=== PATIENT | male | born 1960 | race Two or more races ===

== ENCOUNTER 2018-07-30 09:53 | Emergency (ER) | payer MEDICAID ==
[~2018-07-30] VITALS: Ht 167.6 cm; Wt 72.1 kg
--- NOTE | 2018-07-30 10:13 | Emergency Room Report ---
History of Present Illness General Chief Complaint: General Complaint Source: Patient, EMS, PMD Present Illness HPI 58-year-old male with h/o bipolar disorder, copd, generalized muscle weakness sent from the correction for rectal prolapse, patient reports severe pain, and Dr. Kevin Dotson sent for evaluation. Patient reports significant pain, no bleeding, and no other complaints. It is unclear exactly how long this been going on for. Allergies: Coded Allergies: No Known Allergies (Unverified , 07/30/18) Patient History Limited by: language barrier Past Medical History: see triage record Reviewed Nursing Documentation: PMH: Agreed; PSxH: Agreed Nursing Documentation-PMH Past Medical History: No History, Except For Hx COPD: Yes History Of Psychiatric Problem: Yes - bipolar, substance abuse Hx Neurological Problems: Yes - muscular weakness Review of Systems All Other Systems: limited - language barrier Physical Exam Vital Signs Date Time Temp Pulse Resp B/P (MAP) Pulse Ox O2 Delivery O2 Flow Rate FiO2 07/30/18 09:54 97.7 69 16 97 Room Air Sp02 EP Interpretation: reviewed, normal General Appearance: no apparent distress, alert, non-toxic Head: normocephalic Eyes: bilateral eye normal inspection, bilateral eye PERRL, bilateral eye EOMI ENT: normal ENT inspection, hearing grossly normal, normal pharynx, no angioedema, normal voice, moist mucus membranes Neck: normal inspection, full range of motion, supple, supple/symm/no masses Respiratory: chest non-tender, lungs clear, normal breath sounds, chest symmetrical, palpation of chest normal Cardiovascular #1: normal peripheral pulses, regular rate, rhythm Cardiovascular #2: 2+ radial (R), 2+ radial (L) Gastrointestinal: normal inspection, non tender, soft, no mass, no guarding, no rebound Rectal: mass - large pear-sized rectal prolapse, no bleeding, but + tender Genitourinary: normal inspection, no CVA tenderness Musculoskeletal: back normal, gait/station normal, normal range of motion, non- tender, no calf tenderness Neurologic: alert, responsive, facilities painter III-XII nml as tested, sensory intact, speech normal Psychiatric: mood/affect normal Skin: normal color, normal turgor Lymphatic: no adenopathy Medical Decision Making Diagnostic Impression: Primary Impression: Rectal prolapse ER Course Patient with very large rectal prolapse, tenderness to the mucosa, did attempt placing sugar on it, and gave patient IV analgesics, will admit surgical consultation to [facility], Dr. Kevin Dotosn. Last Vital Signs Date Time Temp Pulse Resp B/P (MAP) Pulse Ox O2 Delivery O2 Flow Rate FiO2 07/30/18 09:54 97.7 69 16 97 Room Air Disposition: ADMITTED INPATIENT Condition: Stable Signed Out To: BAY Zamora M.D July 30, 2018 10:13
[2018-07-30] MEDS ORDERED: NS 250 ML IVPB ONE (10:15)
[2018-07-30] MEDS ORDERED: Morphine Sulfate 2mg/ml Inj(IV/IM USE ONLY) IVP ONE (10:15)
[2018-07-30] MEDS ORDERED: ZYPREXA10 MG ORAL (10:28)
[2018-07-30] MEDS ORDERED: DOCUSATE SODIU100 MG ORAL (10:28)
[2018-07-30] MEDS ORDERED: MILK OF MA400 MG/51 ORAL (10:28)
[2018-07-30] MEDS ORDERED: MULTIVITAMINS1 EA13 ORAL (10:28)
[2018-07-30] MEDS ORDERED: PRO-STAT LIQUID30 ML ORAL (10:28)
[2018-07-30] MEDS ORDERED: IBUPROFEN600 MG ORAL (10:28)
[2018-07-30 10:29] VITALS: BP 116/79
--- NOTE | 2018-07-30 10:33 | NUR ---
ED Nurse Note:pt. was BIBA from SNF with large rectal prolapse, no bleeding noted, pt. is A/Ox4 ambulatory, VSS, blood was sent to labs ,pain meds and IV fluids given, swabs are done
[2018-07-30 10:37] LABS: ANION GAP 7 mmol/L (5-15); BLOOD UREA NITROGEN 18 mg/dL (7-18); CALCIUM 9.5 MG/DL (8.5-10.1); CARBON DIOXIDE 29 MMOL/L (21-32); CHLORIDE 104 MMOL/L (98-107); CREATININE 0.8 MG/DL (0.55-1.30); POTASSIUM 4.1 MMOL/L (3.5-5.1); SODIUM 140 MMOL/L (136-145)
[2018-07-30 10:42] LABS: ALANINE AMINOTRANSFERASE 20 U/L (12-78); ALBUMIN 3.8 G/DL (3.4-5.0); ALBUMIN/GLOBULIN RATIO 1.1 (1.0-2.7); ALKALINE PHOSPHATASE 93 U/L (46-116); ASPARTATE AMINO TRANSFERASE 22 U/L (15-37); BILIRUBIN,TOTAL 0.3 MG/DL (0.2-1.0); INR 1.1 (0.9-1.1)
[2018-07-30 10:46] LABS: EOSINOPHILS % (AUTO) 4.1 % (0.0-3.0); HEMATOCRIT 40.9 % (42.0-52.0); HEMOGLOBIN 14.4 G/DL (14.2-18.0); LYMPHOCYTES % (AUTO) 25.9 % (20.0-45.0); MEAN CORPUSCULAR VOLUME 84 FL (80-99); MONOCYTES % (AUTO) 6.8 % (1.0-10.0); NEUTROPHILS % (AUTO) 62.2 % (45.0-75.0); PLATELET COUNT 256 K/UL (150-450); RED BLOOD COUNT 4.86 M/UL (4.70-6.10); RED CELL DISTRIBUTION WIDTH 14.5 % (11.6-14.8); WHITE BLOOD COUNT 9.2 K/UL (4.8-10.8)
[2018-07-30 13:25] VITALS: BP 119/78
--- NOTE | 2018-07-30 13:26 | NUR ---
ED Nurse Note:called reportv to [facility] -to nurse Siva
--- NOTE | 2018-07-30 14:01 | NUR ---
ED Nurse Note: report given to [facility]
[2018-07-30 14:08] VITALS: BP 122/68
--- NOTE | 2018-07-30 14:10 | NUR ---
ER DISCHARGE NOTE: Patient is cleared to be discharged per ERMD, pt is aox4, on room air, with stable vital signs. pt is able to ambulate with steady gait. pt took all belongings. ELISHA SAEED GAVE REPORT TO Naomi FROM [facility]
== END 2018-07-30 14:08 | disposition short-term general hospital (02) ==
LOC: EDBD 09:53 → EMR 10:24 → EDBEDREQ 11:14 → EMR 14:08
DX: K62.3 Rectal prolapse (principal); J44.9 Chronic obstructive pulmonary disease, unspecified; R53.1 Weakness
CPT/HCPCS: 36415; 80053; 85025; 85610; 85730; 87081; 96374; 96375; 99285; J2270; J2405; J7050

== ENCOUNTER 2018-09-04 19:21 | Emergency (ER) | payer MEDICAID ==
[~2018-09-04] VITALS: Ht 167.6 cm; Wt 65.3 kg
[~2018-09-04 19:21] MED LIST: ACETAMINOPHEN120 MG ORAL; DOCUSATE SODIU100 MG ORAL; IBUPROFEN600 MG ORAL; MILK OF MA400 MG/51 ORAL; MULTIVITAMINS1 EA13 ORAL; MULTIVITAMINS1 EAC8 ORAL; OMEPRAZOLE40 M1 ORAL; PRO-STAT LIQUID30 ML ORAL; SENNA8.6 M2 PO; ZYPREXA10 MG ORAL
[2018-09-04 19:22] VITALS: BP 111/85
--- NOTE | 2018-09-04 19:22 | NUR ---
ED Nurse Note: Patient EJ yeung Covalescent, with complaints of rectal prolapse. A&Ox2, GCS 14.
--- NOTE | 2018-09-04 19:48 | Emergency Room Report ---
History of Present Illness General Chief Complaint: Gastrointestinal Illness Source: Patient, Medical Record, EMS Present Illness HPI Patient presented from nursing facility with reports of rectal prolapse On further discussion with the nursing facility patient has had prolapse symptoms presentation to the facility However today after being seen by the health care provider was sent to the emergency room patient himself has schizophrenia Is not an appropriate historian Does report that he has some discomfort in that area denies any chest pain denies any vomiting Allergies: Coded Allergies: No Known Allergies (Unverified , 07/30/18) Patient History Past Medical History: see triage record Pertinent Family History: none Reviewed Nursing Documentation: PMH: Agreed; PSxH: Agreed Nursing Documentation-PMH Past Medical History: No History, Except For Hx COPD: Yes Hx Gastrointestinal Problems: Yes - GERD History Of Psychiatric Problem: Yes - bipolar Hx Neurological Problems: Yes - muscular weakness Review of Systems All Other Systems: negative except mentioned in HPI Physical Exam Vital Signs Date Time Temp Pulse Resp B/P (MAP) Pulse Ox O2 Delivery O2 Flow Rate FiO2 09/04/18 19:10 98.1 85 19 111/85 (94) 94 Room Air Sp02 EP Interpretation: reviewed, normal General Appearance: no apparent distress Head: normocephalic, atraumatic Eyes: bilateral eye PERRL, bilateral eye EOMI ENT: hearing grossly normal, normal pharynx, TMs + canals normal, uvula midline Neck: full range of motion, supple, no meningismus, no bony tend Respiratory: lungs clear, normal breath sounds, no rhonchi, no respiratory distress, no retraction, no accessory muscle use Cardiovascular #1: normal peripheral pulses, regular rate, rhythm, no edema, no gallop, no JVD, no murmur Gastrointestinal: normal bowel sounds, non tender, soft, no mass, no organomegaly, non-distended, no guarding, no hernia, no pulsatile mass, no rebound Rectal: other - Large rectal prolapse Genitourinary: no CVA tenderness Musculoskeletal: normal inspection Neurologic: oriented x3, responsive, accounting analyst III-XII nml as tested, motor strength/ tone normal, sensory intact Psychiatric: mood/affect normal Skin: normal color, no rash, warm/dry, palpation normal Lymphatic: normal inspection, no adenopathy Medical Decision Making Diagnostic Impression: Primary Impression: Rectal prolapse ER Course Given the patient's history and presentation blood work was obtained Request for admission was made I did discuss with the nursing facility patient has had this prolapse for over past 2 months patient also on review of records Had similar presentation recently with transfer to another facility I spoke to [place] [facility] [place] he reports that it with his discussion with general surgery and colorectal that they would like to transfer the patient back to custodial and will arrange close outpatient follow-up Given the chronicity of this presentation patient will be transferred back to nursing facility Labs Test 09/04/18 19:32 White Blood Count 8.9 K/UL (4.8-10.8) Red Blood Count 4.51 M/UL (4.70-6.10) Hemoglobin 13.3 G/DL (14.2-18.0) Hematocrit 37.3 % (42.0-52.0) Mean Corpuscular Volume 83 FL (80-99) Mean Corpuscular Hemoglobin 29.4 PG (27.0-31.0) Mean Corpuscular Hemoglobin Concent 35.6 G/DL (32.0-36.0) Red Cell Distribution Width 13.2 % (11.6-14.8) Platelet Count 272 K/UL (150-450) Mean Platelet Volume 4.7 FL (6.5-10.1) Neutrophils (%) (Auto) 65.3 % (45.0-75.0) Lymphocytes (%) (Auto) 24.9 % (20.0-45.0) Monocytes (%) (Auto) 5.7 % (1.0-10.0) Eosinophils (%) (Auto) 3.0 % (0.0-3.0) Basophils (%) (Auto) 1.0 % (0.0-2.0) Sodium Level 142 MMOL/L (136-145) Potassium Level 3.8 MMOL/L (3.5-5.1) Chloride Level 105 MMOL/L (98-107) Carbon Dioxide Level 29 MMOL/L (21-32) Anion Gap 8 mmol/L (5-15) Blood Urea Nitrogen 14 mg/dL (7-18) Creatinine 1.0 MG/DL (0.55-1.30) Estimat Glomerular Filtration Rate > 60 mL/min (>60) Glucose Level 142 MG/DL (74-106) Calcium Level 9.4 MG/DL (8.5-10.1) Total Bilirubin 0.3 MG/DL (0.2-1.0) Aspartate Amino Transf (AST/SGOT) 19 U/L (15-37) Alanine Aminotransferase (ALT/SGPT) 17 U/L (12-78) Alkaline Phosphatase 95 U/L (46-116) Total Protein 6.9 G/DL (6.4-8.2) Albumin 3.7 G/DL (3.4-5.0) Globulin 3.2 g/dL Albumin/Globulin Ratio 1.2 (1.0-2.7) Last Vital Signs Date Time Temp Pulse Resp B/P (MAP) Pulse Ox O2 Delivery O2 Flow Rate FiO2 09/04/18 19:10 98.1 85 19 111/85 (94) 94 Room Air Status: improved Disposition: XFER SNF Condition: Stable Additional Instructions: Patient is provided with the discharge instructions notified to follow up with primary doctor in the next 2-3 days otherwise return to the er with any worsening symptoms. Please note that this report is being documented using [employer] technology. This can lead to erroneous entry secondary to incorrect interpretation by the dictating instrument. Armando Gasca DO Sep 04, 2018 19:48
[2018-09-04 19:50] LABS: ANION GAP 8 mmol/L (5-15); BLOOD UREA NITROGEN 14 mg/dL (7-18); CALCIUM 9.4 MG/DL (8.5-10.1); CARBON DIOXIDE 29 MMOL/L (21-32); CHLORIDE 105 MMOL/L (98-107); POTASSIUM 3.8 MMOL/L (3.5-5.1); SODIUM 142 MMOL/L (136-145)
--- NOTE | 2018-09-04 19:51 | NUR ---
Spoke with Li at [facility]-aware of patient going back.
[2018-09-04 19:55] LABS: ALANINE AMINOTRANSFERASE 17 U/L (12-78); ALBUMIN 3.7 G/DL (3.4-5.0); ALBUMIN/GLOBULIN RATIO 1.2 (1.0-2.7); ALKALINE PHOSPHATASE 95 U/L (46-116); ASPARTATE AMINO TRANSFERASE 19 U/L (15-37); BILIRUBIN,TOTAL 0.3 MG/DL (0.2-1.0)
--- NOTE | 2018-09-04 20:15 | NUR ---
ED Nurse Note: Patient is complaining of pain and would like to have something to manage it. Patient informed of impending evaluations here at [place].
--- NOTE | 2018-09-04 20:19 | NUR ---
ED Nurse Note: ERMD informed of patients complaints of pain. 4/10 on pain scale.
[2018-09-04 20:42] LABS: HEMATOCRIT 37.3 % (42.0-52.0); HEMOGLOBIN 13.3 G/DL (14.2-18.0); LYMPHOCYTES % (AUTO) 24.9 % (20.0-45.0); MEAN CORPUSCULAR VOLUME 83 FL (80-99); MONOCYTES % (AUTO) 5.7 % (1.0-10.0); NEUTROPHILS % (AUTO) 65.3 % (45.0-75.0); PLATELET COUNT 272 K/UL (150-450); RED BLOOD COUNT 4.51 M/UL (4.70-6.10); RED CELL DISTRIBUTION WIDTH 13.2 % (11.6-14.8); WHITE BLOOD COUNT 8.9 K/UL (4.8-10.8)
--- NOTE | 2018-09-04 21:32 | NUR ---
Admission cancelled again, per , registration aware.
--- NOTE | 2018-09-04 21:35 | NUR ---
[facility] contacted,spoke with Bakari DAVIS [phone].
--- NOTE | 2018-09-04 22:23 | NUR ---
ED Nurse Note: Patient resting comfortably, no s/s. of acute distress. vital signs stable.
[2018-09-04 22:33] VITALS: BP 111/85
--- NOTE | 2018-09-04 22:33 | NUR ---
ED Nurse Note: Patient cleared for transport back to facility. Report given to EMT personnel. Patient in stable condition.
== END 2018-09-04 22:33 ==
LOC: EDBD 19:21 → EMR 19:51 → CANBEDREQ 19:51 → EMR 22:33
DX: K62.3 Rectal prolapse (principal); J44.9 Chronic obstructive pulmonary disease, unspecified; K21.9 Gastro-esophageal reflux disease without esophagitis
CPT/HCPCS: 36415; 80053; 85025; 99283